=== PATIENT | female | born 1995 | race American Indian/Alaskan Native ===

== ENCOUNTER 2019-02-16 22:16 | Emergency (ER) | payer SELFPAY ==
[2019-02-16 23:01] LABS: CHLORIDE,CL 108 mEq/L (98-106); SODIUM,NA 147 mEq/L (136-145)
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
== END 2019-02-17 01:42 ==
LOC: CC.ED 22:16
DX: T14.91XA Suicide attempt, initial encounter (principal); F10.929 Alcohol use, unspecified with intoxication, unspecified; F17.210 Nicotine dependence, cigarettes, uncomplicated; Y90.8 Blood alcohol level of 240 mg/100 ml or more; X83.8XXA Intentional self-harm by other specified means, initial encounter; Z88.8 Allergy status to other drugs, medicaments and biological substances
CPT/HCPCS: 36415; 80053; 80305-QW; 81001; 84703; 85025; 99285; G0480